=== PATIENT | female | born 1965 | race American Indian/Alaskan Native ===

== ENCOUNTER 2017-01-11 15:30 | Emergency (ER) | payer MEDICAID ==
[2017-01-11 15:33] VITALS: BMI 24.7
[2017-01-11 16:10] VITALS: BP 144/74; O2SAT 98
[2017-01-11] MEDS ORDERED: Oxycodone/Acetaminophen 5/325 mg Tab PO STA ×2 (16:31→18:08)
--- NOTE | 2017-01-11 16:43 | ED PDOC ---
Arrival/HPI - General Chief Complaint: Back Pain Time Seen by Provider: 01/11/17 16:30 Historian: Patient - History of Present Illness Narrative History of Present Illness (Text): 01/11/17 16:39 Patient with past medical history of fibromyalgia on chronic pain medication tylenol # 3 and tramadol at home Rx by her neurologist, reports yesterday that she was pushing her scooter up a ramp and lost control, states that the scooter started to back up causing her to fall landing on her left side, then the scooter fell on top of her, on her right side. Patient reports diffuse body pain left greater than right, states that most of her pain is located on her bilateral shoulders and left ankle. Otherwise: (-) head injury, (-) loss of consciousness, (-) nausea, (-) vomiting, (-) severe headache, (-) other injury, (-) subjective neurologic deficit, (-) anticoagulants. PMD Champagne Past Medical History - Provider Review Nursing Documentation Reviewed: Yes - Infectious Disease Hx of Infectious Diseases: None - Tetanus Immunization Tetanus Immunization: Unknown - Reproductive Menopause: No - Cardiac Hx Hypertension: Yes - Pulmonary Hx Respiratory Disorders: No - Neurological Hx Neurological Disorder: No - HEENT Hx HEENT Disorder: No - Renal Hx Renal Disorder: No - Endocrine/Metabolic Hx Endocrine Disorders: No - Hematological/Oncological Hx Blood Disorders: No - Integumentary Hx Dermatological Disorder: No - Musculoskeletal/Rheumatological Hx Musculoskeletal Disorders: No - Gastrointestinal Hx Gastrointestinal Disorders: No - Genitourinary/Gynecological Hx Genitourinary Disorders: No - Psychiatric Hx Anxiety: Yes Hx Substance Use: No - Surgical History Hx Section: Yes (x3) Other/Comment: left ovarectemy - Anesthesia Hx Anesthesia: Yes Hx Anesthesia Reactions: No Hx Malignant Hyperthermia: No - Suicidal Assessment Feels Threatened In Home Enviroment: No Family/Social History - Physician Review Nursing Documentation Reviewed: Yes Family/Social History: No Known Family HX Smoking Status: Never Smoked Hx Alcohol Use: No Hx Substance Use: No Hx Substance Use Treatment: No Allergies/Home Meds Allergies/Adverse Reactions: Allergies amoxicillin Allergy (Verified 01/11/17 16:12) SHORTNESS OF BREATH cephalexin monohydrate [From Keflex] Allergy (Verified 01/11/17 16:12) RASH Sulfa (Sulfonamide Antibiotics) Allergy (Verified 01/11/17 16:11) SHORTNESS OF BREATH KEFLEX Allergy (Uncoded 01/11/17 16:12) REDNESS Home Medications: Home Meds Medication Instructions Recorded Confirmed Chlordiazepoxide Hydrochlori 09/16/15 09/16/15 [Librium] Phenazopyridine Hydrochlorid2 09/16/15 09/16/15 [Phenazopyridine] hydrOXYzine Pamoate [Vistaril] 09/16/15 09/16/15 Review of Systems - Review of Systems Constitutional: Normal, Fatigue. absent: Weight Change, Fevers Respiratory: Normal. absent: SOB, Cough Cardiovascular: Normal. absent: Chest Pain, Palpitations Musculoskeletal: Normal, Arthralgias, Back Pain, Neck Pain. absent: Joint Swelling Skin: Normal. absent: Rash, Pruritis, Skin Lesions Neurological: Normal. absent: Headache, Dizziness, Focal Weakness Physical Exam - Physical Exam Narrative Physical Exam (Text): 01/11/17 16:42 GENERAL APPEARANCE: Patient is awake, alert, oriented x 3, in moderate painful distress. SKIN: Warm, dry; (-) cyanosis. HEAD: (-) swelling and tenderness, with no palpable bony defect. EYES: (-) conjunctival pallor, (-) scleral icterus, (-) nystagmus. ENMT: Mucous membranes moist. (-) Choudhary's sign. Nose: (-) tenderness, (-) rhinorrhea. No oral trauma. Pharynx clear. Airway patent: (-) stridor. Full ROM of mandible without pain. NECK: (-) tenderness, (-) stiffness, (-) lymphadenopathy. CHEST AND RESPIRATORY: (-) chest wall tenderness. Lungs: (-) rales, (-) rhonchi, (-) wheezes; breath sounds equal bilaterally. HEART AND CARDIOVASCULAR: (-) irregularity; (-) murmur, (-) gallop. ABDOMEN AND GI: Soft; (-) tenderness. BACK: (-) tenderness. EXTREMITIES: (-) deformity, (+) mild diffuse tenderness, greatest in b/l shoulders and L ankle, (+) mild edema to the L ankle, (-) limitation of motion NEURO AND PSYCH: GCS=15. Mental status as above. 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 EOMI. (-) facial asymmetry. Tongue and uvula midline. Strength 5/5 in all extremities. No gross sensory deficits. DTRs symmetric. Vital Signs Temp Pulse Resp BP Pulse Ox 01/11/17 18:56 98.0 F 100 H 16 98 01/11/17 15:59 97.8 F 106 H 18 144/74 98 Medical Decision Making ED Course and Treatment: 01/11/17 16:43 51 yo F with pmh of fibromyalgia on chronic pain medications, s/p fall while pushing her scooter, c/o diffuse body pain, greatest pain in b/l shoulder and L ankle. XRs ordered of b/l shoulder and L ankle. Given percocet 1 tab po. 01/11/17 18:09 XR bilateral shoulders: no fracture, no dislocation, as read by PA XR L ankle: no fracture, no dislocation, as read by PA Patient advised that official radiology read of XR is still pending and will call the patient if there is any discrepancy within 24 hours. X-ray results discussed with the patient agreed detail. Patient continues to complain of pain, given another dose of Percocet one tablet by mouth. Amrik wrap applied to the L ankle. Based on history, exam and diagnostic results plan will be for outpatient follow -up with PMD. Advised to continue taking her current pain medications at home.Patient states she fully agrees with and understands discharge instructions. States that she agrees with the plan and disposition. Verbalized and repeated discharge instructions and plan. I have given the patient opportunity to ask any additional questions. Follow up with primary care physician in 1-2 days without fail. Return to the emergency room at any time for any new or worsening symptoms. - RAD Interpretation Radiology Orders: 01/11/17 16:30 SHOULDER MIN 2 VIEWS BI [RAD] Stat 01/11/17 16:31 ANKLE LEFT 3 VIEWS ROUTINE [RAD] Stat - Medication Orders Current Medication Orders: Discontinued Medications Home Med (*Refrigerator Open) Confirm Administered Dose 1 unit XX .STK-MED ONE Stop: 01/11/17 17:12 Oxycodone/Acetaminophen (Percocet 5/325 Mg Tab) 1 tab PO STAT STA Stop: 01/11/17 16:32 Last Admin: 01/11/17 16:41 Dose: 1 TAB Oxycodone/Acetaminophen (Percocet 5/325 Mg Tab) 1 tab PO STAT STA Stop: 01/11/17 18:09 Last Admin: 01/11/17 18:26 Dose: 1 TAB - PA / STUDY LEAD / Resident Statement / has reviewed & agrees with the documentation as recorded. Disposition/Present on Arrival - Present on Arrival Any Indicators Present on Arrival: No History of DVT/PE: No History of Uncontrolled Diabetes: No Urinary Catheter: No History of Decub. Ulcer: No History Surgical Site Infection Following: None - Disposition Have Diagnosis and Disposition been Completed?: Yes Diagnosis: Shoulder pain, bilateral, Ankle pain, Myalgia Disposition: HOME/ ROUTINE Disposition Time: 18:10 Patient Plan: Discharge Patient Problems: Current Active Problems Problem Status Diagnosed Ankle pain Acute Myalgia Acute Shoulder pain, bilateral Acute Condition: GOOD Discharge Instructions (ExitCare): Arthralgia (ED), Musculoskeletal Pain (ED) Print Language: UZBEK Additional Instructions: Thank you for letting us take care of you today. You were treated for bilateral shoulder pain, ankle pain, body aches status post fall. The emergency medical care you received today was directed at your acute symptoms. Return to the Emergency Department if your symptoms worsen, do not improve, or if you have any other problems. Please contact your doctor in 2 days for re-evaluation and follow up. Bring any paperwork you were given at discharge with you along with any medications you are taking to your follow up visit. Our treatment cannot replace ongoing medical care by a primary care provider (PCP) outside of the emergency department. Thank you for allowing the [email or web address] team to be part of your care today. Referrals: Brenda Champagne DO [Primary Care Provider] - Follow up with primary
[2017-01-11 18:57] VITALS: PULSE 100; RESP 16; TEMP 98
--- NOTE | 2017-01-12 08:25 | RAD ---
PROCEDURE: Left Ankle Radiographs. HISTORY: pain COMPARISON: None FINDINGS: BONES: Normal. No fracture. JOINTS: Normal. No osteoarthritis. Ankle mortise maintained. Talar dome intact SOFT TISSUES: Normal. OTHER FINDINGS: None. IMPRESSION: Normal left ankle radiographs.
--- NOTE | 2017-01-12 08:30 | RAD ---
PROCEDURE: Radiographs of both shoulders HISTORY: pain COMPARISON: No prior. FINDINGS: BONES: Right shoulder: Normal. No fracture. Left shoulder: Normal. No fracture. JOINTS: Right shoulder: Normal. No significant osteoarthritic changes. Left shoulder: Normal. No significant osteoarthritic changes. SOFT TISSUES: Right shoulder: Grossly unremarkable. Right shoulder: Grossly unremarkable. OTHER FINDINGS: None. IMPRESSION: Normal radiographs of the shoulders.
== END 2017-01-11 19:17 | disposition home or self-care (01) ==
LOC: ED 15:30
DX: M79.1 Myalgia (principal); M25.511 Pain in right shoulder; M25.512 Pain in left shoulder; M25.572 Pain in left ankle and joints of left foot

== ENCOUNTER 2017-10-28 16:34 | Emergency (ER) | payer MEDICAID ==
[2017-10-28 16:35] VITALS: BMI 24.7
[2017-10-28 16:54] VITALS: TEMP 98.8
--- NOTE | 2017-10-28 17:09 | ED PDOC ---
"Arrival/HPI - General Chief Complaint: ENT Problem Time Seen by Provider: 10/28/17 17:02 Historian: Patient - History of Present Illness Narrative History of Present Illness (Text): 10/28/17 17:03 51 y/o female, pmh including UTI, allergic to penicillin, post menopausal, c/o rt. sided facial swelling and pain x 3 days. Pt. stated that she had a tiny lesion on the rt. lower chin about 3 days ago, been picking and rubbing it, now she had rt. sided facial swelling with pain, no numbness or tingling, no night sweat, no dizziness, no rash, no other medical or psychological complaints. Past Medical History - Provider Review Nursing Documentation Reviewed: Yes - Infectious Disease Hx of Infectious Diseases: None - Tetanus Immunization Tetanus Immunization: Unknown - Reproductive Menopause: Yes - Cardiac Hx Hypertension: Yes - Pulmonary Hx Respiratory Disorders: No - Neurological Hx Neurological Disorder: No - HEENT Hx HEENT Disorder: No - Renal Hx Renal Disorder: No - Endocrine/Metabolic Hx Endocrine Disorders: No - Hematological/Oncological Hx Blood Disorders: No - Integumentary Hx Dermatological Disorder: No - Musculoskeletal/Rheumatological Hx Musculoskeletal Disorders: No - Gastrointestinal Hx Gastrointestinal Disorders: No - Genitourinary/Gynecological Hx Genitourinary Disorders: No - Psychiatric Hx Anxiety: Yes Hx Substance Use: No - Surgical History Hx Section: Yes (x3) Other/Comment: left ovarectemy - Anesthesia Hx Anesthesia: Yes Hx Anesthesia Reactions: No Hx Malignant Hyperthermia: No - Suicidal Assessment Feels Threatened In Home Enviroment: No Family/Social History - Physician Review Nursing Documentation Reviewed: Yes Family/Social History: Unknown Family HX Smoking Status: Never Smoked Hx Alcohol Use: No Hx Substance Use: No Hx Substance Use Treatment: No Allergies/Home Meds Allergies/Adverse Reactions: Allergies amoxicillin Allergy (Verified 01/11/17 16:12) SHORTNESS OF BREATH cephalexin monohydrate [From Keflex] Allergy (Verified 10/28/17 16:51) RASH Sulfa (Sulfonamide Antibiotics) Allergy (Verified 10/28/17 16:51) SHORTNESS OF BREATH KEFLEX Allergy (Uncoded 01/11/17 16:12) REDNESS Review of Systems - Review of Systems Constitutional: absent: Fatigue, Fevers Eyes: absent: Vision Changes ENT: absent: Hearing Changes Respiratory: absent: SOB, Cough Cardiovascular: absent: Chest Pain Gastrointestinal: absent: Abdominal Pain, Diarrhea, Nausea, Vomiting Skin: Rash, Skin Lesions. absent: Pruritis, Laceration, Abscess, Ulcer Neurological: absent: Headache, Dizziness Psychiatric: absent: Anxiety, Depression Physical Exam Vital Signs Reviewed: Yes Vital Signs Temp Pulse Resp BP Pulse Ox 10/29/17 00:10 94 H 18 121/78 95 10/28/17 22:03 99 H 18 115/75 94 L 10/28/17 20:52 99 H 18 123/86 95 10/28/17 16:53 98.8 F 122 H 20 116/76 95 Temperature: Afebrile Blood Pressure: Normal Pulse: Tachycardic Respiratory Rate: Normal Appearance: Positive for: Well-Appearing, Non-Toxic Pain Distress: Moderate Mental Status: Positive for: Alert and Oriented X 3 - Systems Exam Head: Present: Atraumatic, Normocephalic Pupils: Present: PERRL Extroacular Muscles: Present: EOMI Conjunctiva: Present: Normal Ears: Present: NORMAL TM, Normal Canal. No: Erythema Mouth: Present: Moist Mucous Membranes Pharnyx: No: ERYTHEMA, EXUDATE, TONSILS ENLARGED, Uvular Deviation, Muffled/ Hoarse Voice, Strider, Soft Palate/Uvular Edema Nose (External): Present: Atraumatic. No: Abrasion, Contusion, Laceration Nose (Internal): Present: Normal Inspection, No Active Bleeding. No: Rhinorrhea , Septal Hematoma, Epistaxis Neck: Present: Normal Range of Motion, Trachea Midline. No: Meningeal Signs, MIDLINE TENDERNESS, Paraspinal Tenderness, Lymphadenopathy Respiratory/Chest: Present: Clear to Auscultation, Good Air Exchange. No: Respiratory Distress, Accessory Muscle Use, Wheezes, Decreased Breath Sounds, Rales, Retracting, Rhonchi, Tachypneic, Tender to Palpation Cardiovascular: Present: Regular Rate and Rhythm, Normal S1, S2. No: Murmurs Abdomen: Present: Normal Bowel Sounds. No: Tenderness, Distention, Peritoneal Signs, Rebound, Guarding Back: Present: Normal Inspection Upper Extremity: Present: Normal Inspection. No: Cyanosis, Edema Lower Extremity: Present: Normal Inspection. No: Edema Neurological: Present: GCS=15, Speech Normal, Motor Func Grossly Intact, Gait Normal, Memory Normal Skin: Present: Warm, Dry, Rashes (Rt. sided lower lateral chin region with papule approx. 1cm diameter with erythematous, associated with rt. sided facial swelling, no periorbital swelling, no painful movement of the eye. ), Normal Color Psychiatric: Present: Alert, Oriented x 3, Normal Insight, Normal Concentration Medical Decision Making ED Course and Treatment: 10/28/17 17:10 -Labs -CT facial -IV toradol/benadryl/fluid -observe and reassess 10/28/17 21:51 -Labs are non-significant -CT show Soft tissue swelling in the right chin anterior to the mandible, no associated dental disease identified; submandibular and submental adenopathy and shotty cervical adenopathy -IV morphine for her pain as she request it for tonight, I checked the [facility] and unable to prescribe controlled substance pain med for her due to the number of prescription. -IV clindamycin/morphine/zofran/decadron ordered for her -I will treat her lesion with herpes labialis and facial cellulitis. 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 - Lab Interpretations Lab Results: 10/28/17 17:20 10/28/17 17:20 Lab Results 10/28/17 17:20: WBC 6.4 D, RBC 4.13, Hgb 12.1, Hct 36.9, MCV 89.3, MCH 29.3, MCHC 32.8, RDW 13.4, Plt Count 251, MPV 8.5, Gran % 61.4, Lymph % (Auto) 24.0, [place] % (Auto) 10.0 H, Eos % (Auto) 4.4, Baso % (Auto) 0.2, Gran # 3.95, Lymph # 1.5, [place] # 0.6, Eos # 0.3, Baso # 0.01 10/28/17 17:20: Sodium 139, Potassium 3.7, Chloride 101, Carbon Dioxide 30, Anion Gap 12, BUN 10, Creatinine 0.7, Est GFR ( Amer) > 60, Est GFR (Non- Af Amer) > 60, Random Glucose 121 H, Calcium 9.7, Total Bilirubin 0.4, AST 39 H , ALT 44, Alkaline Phosphatase 90, Total Protein 8.2, Albumin 4.4, Globulin 3.7 , Albumin/Globulin Ratio 1.2 - RAD Interpretation Radiology Orders: 10/28/17 17:10 MAXILLOFACIAL W/CONTRAST [CT] Stat FINDINGS: Bones/joints: There are degenerative changes in the spine. Soft tissues: There is soft tissue swelling and edema in the chin on the right. No focal abnormality is seen in the underlying right mandible. Vasculature: Vascular structures are unremarkable. Lymph nodes: There are mildly enlarged submental and submandibular lymph nodes bilaterally. There are shotty cervical nodes. Orbits: Orbital contents are unremarkable. Salivary glands: Parotid and submandibular glands are unremarkable. Sinuses: There is mucoperiosteal thickening in ethmoid air cells. There is a retention cyst/polyp left maxillary antrum. There are no air-fluid levels in the sinuses. Ears and mastoids: Middle ears and mastoids are unremarkable. Dental: Streak artifact from dental fillings. There are no dental erosions. BETORIK MURPHYN | Final Radiology Report CONFIDENTIALITY STATEMENT This report is intended only for use by the referring physician, and only in accordance with law. If you received this in error, call [phone]. Page 2 of 2 Brain: No focal abnormalities are seen in visualized portion of the brain. IMPRESSION: Soft tissue swelling in the right chin anterior to the mandible, no associated dental disease identified; submandibular and submental adenopathy and shotty cervical adenopathy Additional nonemergent findings as described above. Thank you for allowing us to participate in the care of your patient. 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 - Medication Orders Current Medication Orders: Discontinued Medications Diphenhydramine HCl (Benadryl) 50 mg IVP STAT STA Stop: 10/28/17 17:13 Last Admin: 10/28/17 17:30 Dose: 50 mg IVP Administration Document 10/28/17 17:30 GMD (Rec: 10/28/17 17:30 [facility]MD [facility] [id number]) Charges for Administration # of IVP Administrations 1 Sodium Chloride (Sodium Chloride 0.9%) 1,000 mls @ 100 mls/hr IV .Q10H ALFRED Last Admin: 10/28/17 17:30 Dose: 100 mls/hr eMAR Start Stop Document 10/28/17 17:30 GMD (Rec: 10/28/17 17:30 [id number][place] Intravenous Solution Start Date 10/28/17 Start Time 17:30 Clindamycin Phosphate 900 mg/ (Sodium Chloride) 106 mls @ 106 mls/hr IVPB STAT STA PRN Reason: Protocol Stop: 10/28/17 22:44 Last Admin: 10/28/17 22:56 Dose: 106 mls/hr eMAR Start Stop Document 10/28/17 22:56 GMD (Rec: 10/28/17 22:56 [id number]) Intravenous Solution Start Date 10/28/17 Start Time 22:56 End Date 10/28/17 End time 23:56 Total Infusion Time 60 Dexamethasone 8 mg/ Sodium (Chloride) 52 mls @ 150 mls/hr IV ONCE ONE Stop: 10/28/17 22:11 Last Admin: 10/28/17 22:20 Dose: 150 mls/hr eMAR Start Stop Document 10/28/17 22:20 GMD (Rec: 10/28/17 22:20 [id number]) Intravenous Solution Start Date 10/28/17 Start Time 22:20 End Date 10/28/17 End time 22:40 Total Infusion Time 20 Ketorolac Tromethamine (Toradol) 30 mg IVP STAT STA Stop: 10/28/17 17:11 Last Admin: 10/28/17 17:30 Dose: 30 mg MAR Pain Assessment Document 10/28/17 17:30 GMD (Rec: 10/28/17 17:30 [facility] [id number]) Pain Reassessment Is this a pain reassessment? No Sleep Is patient sleeping during reassessment? No Presence of Pain Presence of Pain Yes Pain Scale Used Pain Scale Used Numeric Location Pain Location Body Site Face IVP Administration Document 10/28/17 17:30 GMD (Rec: 10/28/17 17:30 [facility] [id number]) Charges for Administration # of IVP Administrations 1 Morphine Sulfate (Morphine) 4 mg IVP STAT STA Stop: 10/28/17 21:46 Last Admin: 10/28/17 21:59 Dose: 4 mg MAR Pain Assessment Document 10/28/17 21:59 GMD (Rec: 10/28/17 21:59 [facility] [id number]) Pain Reassessment Is this a pain reassessment? No Sleep Is patient sleeping during reassessment? 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 Disposition/Present on Arrival - Present on Arrival Any Indicators Present on Arrival: No History of DVT/PE: No History of Uncontrolled Diabetes: No Urinary Catheter: No History of Decub. 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 Prescriptions: Cetirizine HCl [Zyrtec Allergy] 10 mg PO DAILY #10 sgl Clindamycin [Cleocin] 300 mg PO QID #40 cap Naproxen 500 mg PO BID PRN #20 tab PRN Reason: Other Valacyclovir HCl [Valtrex] 2 tab PO BID #4 tablet Referrals: Brenda Champagne DO [Primary Care Provider] - Follow up with primary Maci Ruiz MD [Staff Provider] - Follow up with primary Lazaro Bowles MD [Staff Provider] - Follow up with primary Forms: [employer] (Hungarian), WORK NOTE"
[2017-10-28] MEDS ORDERED: DiphenhydrAMINE 50 mg/ml Inj IVP STA (17:12)
[2017-10-28] MEDS ORDERED: Sodium Chloride 0.9% 1,000 ML IV SCH (17:15)
[2017-10-28] MEDS ORDERED: Iohexol 350 MG/100 ML VIAL ONE (17:39)
[2017-10-28 17:41] LABS: BASO # 0.01 K/mm3 (0.0-2.0); BASO % 0.2 % (0.0-3.0); EOS # 0.3 (0.0-0.7); EOS % 4.4 % (1.5-5.0); GRAN # 3.95 (1.4-6.5); GRAN % 61.4 % (50.0-68.0); HEMOGLOBIN 12.1 g/dL (12.0-16.0); LYMPH # 1.5 (1.2-3.4); MEAN CELL VOLUME 89.3 fl (80.0-105.0); MEAN CORPUSCULAR HEMOGLOBIN 29.3 pg (25.0-35.0); MEAN CORPUSCULAR HGB CONC 32.8 g/dl (31.0-37.0); MEAN PLATELET VOLUME 8.5 fl (7.0-11.0); MONO # 0.6 (0.1-0.6); RBC 4.13 10^6/uL (3.5-6.1); RED CELL DISTRIBUTION WIDTH 13.4 % (11.5-14.5); WHITE BLOOD COUNT 6.4 10^3/ul (4.5-11.0)
[2017-10-28 17:55] LABS: ALB/GLOB RATIO 1.2 (1.1-1.8); ALBUMIN 4.4 g/dL (3.0-4.8); ALT/SGPT 44 U/L (7-56); AST/SGOT 39 U/L (14-36); BLOOD UREA NITROGEN 10 mg/dL (7-21); CALCIUM 9.7 mg/dL (8.4-10.5); GFR AFRICAN-AMERICAN > 60; GFR NON-AFRICAN AMERICAN > 60
[2017-10-28 20:52] VITALS: RESP 18
--- NOTE | 2017-10-28 21:37 | CT ---
EXAM: CT Maxillofacial With Intravenous Contrast EXAM DATE/TIME: 10/28/2017 5:10 PM CLINICAL HISTORY: 51 years old, female; Pain; Face pain; Additional info: Rt. Sided facial swelling and pain x 2 days TECHNIQUE: Axial computed tomography images of the face with intravenous contrast. All CT scans at this facility use one or more dose reduction techniques, viz.: automated exposure control; ma/kV adjustment per patient size (including targeted exams where dose is matched to indication; i.e. head); or iterative reconstruction technique. Coronal and sagittal reformatted images were created and reviewed. CONTRAST: 100 mL of OMNI administered intravenously. COMPARISON: There are no prior studies for comparison. FINDINGS: Bones/joints: There are degenerative changes in the spine. Soft tissues: There is soft tissue swelling and edema in the chin on the right. No focal abnormality is seen in the underlying right mandible. Vasculature: Vascular structures are unremarkable. Lymph nodes: There are mildly enlarged submental and submandibular lymph nodes bilaterally. There are shotty cervical nodes. Orbits: Orbital contents are unremarkable. Salivary glands: Parotid and submandibular glands are unremarkable. Sinuses: There is mucoperiosteal thickening in ethmoid air cells. There is a retention cyst/polyp left maxillary antrum. There are no air-fluid levels in the sinuses. Ears and mastoids: Middle ears and mastoids are unremarkable. Dental: Streak artifact from dental fillings. There are no dental erosions. Brain: No focal abnormalities are seen in visualized portion of the brain. IMPRESSION: Soft tissue swelling in the right chin anterior to the mandible, no associated dental disease identified; submandibular and submental adenopathy and shotty cervical adenopathy Additional nonemergent findings as described above.
[2017-10-28] MEDS ORDERED: Morphine 4 mg/ml ISec IVP STA (21:45)
[2017-10-29 00:10] VITALS: BP 121/78; PULSE 94; O2SAT 95
== END 2017-10-29 00:34 | disposition home or self-care (01) ==
LOC: ED 16:34
DX: R22.0 Localized swelling, mass and lump, head (principal); L98.8 Other specified disorders of the skin and subcutaneous tissue; I10 Essential (primary) hypertension
CPT/HCPCS: 70488; 80053; 85025; 96365; 96367; 96375; 99284; J1100; J1200; J1885; J2270; J2405; J7040; Q9967

== ENCOUNTER 2018-05-10 02:59 | Emergency (ER) | payer MEDICAID ==
[2018-05-10 03:02] VITALS: BMI 34.2
[2018-05-10 03:25] VITALS: RESP 18
--- NOTE | 2018-05-10 03:33 | ED PDOC ---
Arrival/HPI - General Chief Complaint: Chest Pain Time Seen by Provider: 05/10/18 03:01 Historian: Patient, Family - History of Present Illness Narrative History of Present Illness (Text): 05/10/18 03:30 A 52 year old female, whose past medical history includes fribromyalgia, mitral valve Prolapse and hypertension, presents to the emergency department complaining of chest pain since earlier tonight. Patient reports reports chest pain occured after taking medicinal marijuana. Patient denies any previous heart pain and denies any fever, chills, shortness of breath, nausea, vomiting, back pain, neck pain, headache, dizziness, or any other complaints. PMD: Dr. Roth Time/Duration: 4-6 hours, Other (Earlier tonight) Symptom Onset: Gradual Symptom Course: Unchanged Quality: Pressure Context: Home Past Medical History - Provider Review Nursing Documentation Reviewed: Yes - Infectious Disease Hx of Infectious Diseases: None - Tetanus Immunization Tetanus Immunization: Unknown - Cardiac Hx Hypertension: Yes - Pulmonary Hx Respiratory Disorders: No - Neurological Hx Neurological Disorder: No - HEENT Hx HEENT Disorder: No - Renal Hx Renal Disorder: No - Endocrine/Metabolic Hx Endocrine Disorders: No - Hematological/Oncological Hx Blood Disorders: No - Integumentary Hx Dermatological Disorder: No - Musculoskeletal/Rheumatological Hx Musculoskeletal Disorders: No - Gastrointestinal Hx Gastrointestinal Disorders: No - Genitourinary/Gynecological Hx Genitourinary Disorders: No - Psychiatric Hx Anxiety: Yes Hx Substance Use: No - Surgical History Hx Section: Yes (x3) Other/Comment: left ovarectemy - Anesthesia Hx Anesthesia: Yes Hx Anesthesia Reactions: No Hx Malignant Hyperthermia: No - Suicidal Assessment Feels Threatened In Home Enviroment: No Family/Social History - Physician Review Nursing Documentation Reviewed: Yes Family/Social History: Unknown Family HX Smoking Status: Never Smoked Hx Alcohol Use: No Hx Substance Use: No Hx Substance Use Treatment: No Allergies/Home Meds Allergies/Adverse Reactions: Allergies amoxicillin Allergy (Verified 05/10/18 03:02) SHORTNESS OF BREATH cephalexin monohydrate [From Keflex] Allergy (Verified 05/10/18 03:02) RASH Sulfa (Sulfonamide Antibiotics) Allergy (Verified 05/10/18 03:02) SHORTNESS OF BREATH KEFLEX Allergy (Uncoded 05/10/18 03:02) REDNESS Home Medications: Home Meds Medication Instructions Recorded Confirmed Acetaminophen with Codeine 1 tab PO QID PRN 05/10/18 05/10/18 [Tylenol with Codeine #4 Tablet] Furosemide [Lasix] 20 mg PO DAILY 05/10/18 05/10/18 Gabapentin [Neurontin] 600 mg PO TID PRN 05/10/18 05/10/18 Metoprolol Succinate [Toprol Xl] 25 mg PO DAILY 05/10/18 05/10/18 Sertraline HCl [Sertraline HCl] 25 mg PO DAILY 05/10/18 05/10/18 Tramadol HCl [Ultram] 50 mg PO Q6H PRN 05/10/18 05/10/18 Zolpidem [Ambien] 10 mg PO HS 05/10/18 05/10/18 chlordiazePOXIDE [Librium] 25 mg PO BID 05/10/18 05/10/18 hydrOXYzine Pamoate [Vistaril] 50 mg PO Q6H PRN 05/10/18 05/10/18 Review of Systems - Physician Review All systems were reviewed & negative as marked: Yes - Review of Systems Constitutional: Normal. absent: Fevers, Night Sweats Eyes: Normal Respiratory: absent: SOB Cardiovascular: Chest Pain (center chest pain) Gastrointestinal: absent: Nausea, Vomiting Musculoskeletal: absent: Back Pain, Neck Pain Neurological: absent: Headache, Dizziness Physical Exam Vital Signs Reviewed: Yes Vital Signs Temp Pulse Pulse Resp BP Pulse Ox 05/10/18 05:15 98.1 F 87 18 107/73 97 05/10/18 03:49 87 05/10/18 03:10 97.6 F 99 H 18 139/74 100 Temperature: Afebrile Blood Pressure: Normal Pulse: Tachycardic Respiratory Rate: Normal Appearance: Positive for: Well-Appearing, Non-Toxic, Comfortable Pain Distress: None Mental Status: Positive for: Alert and Oriented X 3 - Systems Exam Head: Present: Atraumatic, Normocephalic Pupils: Present: PERRL Extroacular Muscles: Present: EOMI Conjunctiva: Present: Normal Mouth: Present: Moist Mucous Membranes Neck: Present: Normal Range of Motion Respiratory/Chest: Present: Clear to Auscultation, Good Air Exchange. No: Respiratory Distress, Accessory Muscle Use Cardiovascular: Present: Regular Rate and Rhythm, Normal S1, S2. No: Murmurs Abdomen: No: Tenderness, Distention, Peritoneal Signs Back: Present: Normal Inspection Upper Extremity: Present: Normal Inspection. No: Cyanosis, Edema Lower Extremity: Present: Normal Inspection. No: Edema Neurological: Present: GCS=15, CN II-XII Intact, Speech Normal Skin: Present: Warm, Dry, Normal Color. No: Rashes Psychiatric: Present: Alert, Oriented x 3, Normal Insight, Normal Concentration , Anxious Medical Decision Making ED Course and Treatment: 05/10/18 03:35 Impression: 52 year old female presents to the emergency department complaining of chest pain. ro acs Plan: -- EKG -- Labs -- CBC -- DDimer -- Partial Thromboplastin -- Prothrombin -- Chest X-ray -- HCG. Qualitative Urine Stat -- Urinalysis -- Reassess and disposition Prior Visits: Notes and results from previous visits were reviewed. Progress Notes: 05/10/18 05:04 Chest X-ray reviewed, no acute findings. Interpreted by me. 05/10/18 05:56 Leaving Against Medical Advice (AMA): The patient is choosing to leave against medical advice. I have personally explained to the patient that choosing to do so may result in permanent bodily harm or . I have discussed at great length that without further evaluation and monitoring there may be unforeseen circumstances and/or deterioration causing permanent bodily harm or as a result of their choice. The patient is alert, oriented, and shows the mental capacity to make clear decisions regarding the patients health care at this time. The patient continues to wish to leave against medical advice. In light of the patients decision to leave against medical advice, follow-up has been arranged and the patient is aware of the importance to following up as instructed. The patient has been advised that they should return to the emergency room immediately if they change their mind at any time, or if their condition begins to change or worsen in any way. 05/10/18 06:29 trop neg x 1, elevated lfts. no abd ttp. as pt has had pain < 6 hours from ed presentation, requested serial trop and obs. pt norma littlejohn cp free. notfiied of lab results. advise outpt fu. - Lab Interpretations Lab Results: 05/10/18 03:45 05/10/18 03:45 Lab Results 05/10/18 05:05: Urine Opiates Screen Positive H, Urine Methadone Screen Negative , Ur Barbiturates Screen Negative, Ur Phencyclidine Scrn Negative, Ur Amphetamines Screen Negative, U Benzodiazepines Scrn Positive H, U Oth Cocaine Metabols Negative, U Cannabinoids Screen Positive H 05/10/18 03:45: Urine HCG, Qual Negative 05/10/18 03:45: Sodium 143, Potassium 4.3, Chloride 103, Carbon Dioxide 26, Anion Gap 18, BUN 7, Creatinine 0.7, Est GFR ( Amer) > 60, Est GFR (Non- Af Amer) > 60, Random Glucose 116 H, Calcium 9.5, Magnesium 2.0, Total Bilirubin 0.6, AST 42 H, ALT 60 H, Alkaline Phosphatase 131 H D, Lactate Dehydrogenase 967 H, Total Creatine Kinase 195, Troponin I < 0.01, Total Protein 9.1 H, Albumin 5.0 H, Globulin 4.1, Albumin/Globulin Ratio 1.2 05/10/18 03:45: Urine Color Yellow, Urine Appearance Clear, Urine pH 6.0, Ur Specific [place] >= 1.030, Urine Protein Negative, Urine Glucose (UA) Negative, Urine Ketones Negative, Urine Blood Negative, Urine Nitrate Negative, Urine Bilirubin Negative, Urine Urobilinogen 0.2, Ur Leukocyte Esterase Trace H, Urine RBC 0 - 2, Urine WBC 2 - 5, Ur Epithelial Cells 4 - 5, Urine Bacteria Mod 05/10/18 03:45: PT 11.1, INR 0.97, APTT 30.0, D-Dimer, Quantitative < 200 05/10/18 03:45: WBC 4.2 L D, RBC 4.75, Hgb 13.5, Hct 40.6, MCV 85.5 D, MCH 28.4 , MCHC 33.3, RDW 13.2, Plt Count 254, MPV 8.8, Gran % 41.0 L, Lymph % (Auto) 46.0 H, [place] % (Auto) 7.8 H, Eos % (Auto) 5.0, Baso % (Auto) 0.2, Gran # 1.74, Lymph # (Auto) 2.0, [place] # (Auto) 0.3, Eos # (Auto) 0.2, Baso # (Auto) 0.01 - RAD Interpretation Radiology Orders: 05/10/18 03:29 CHEST PORTABLE [RAD] Stat - Scribe Statement The provider has reviewed the documentation as recorded by the Devin Orellana All medical record entries made by the Scribe were at my direction and personally dictated by me. I have reviewed the chart and agree that the record accurately reflects my personal performance of the history, physical exam, medical decision making, and the department course for this patient. I have also personally directed, reviewed, and agree with the discharge instructions and disposition. Disposition/Present on Arrival - Present on Arrival Any Indicators Present on Arrival: No History of DVT/PE: No History of Uncontrolled Diabetes: No Urinary Catheter: No History of Decub. Ulcer: No History Surgical Site Infection Following: None - Disposition Have Diagnosis and Disposition been Completed?: Yes Diagnosis: Chest pain, Elevated LFTs, Left against medical advice Disposition: AGAINST MEDICAL ADVICE Disposition Time: 06:30 Patient Problems: Current Active Problems Problem Status Onset Chest pain Acute Elevated LFTs Acute Condition: UNKNOWN Discharge Instructions (ExitCare): Leaving Against Medical Advice, Chest Pain ( ED) Additional Instructions: you are declining repeat testing . you are able to return to any er with worsening symptoms or concerns. please discuss your lab tests with your doctor. you may need further testing. Referrals: Aleksey Garcia MD [Staff Provider] - Follow up with primary Elver Velasco MD [Staff Provider] - Follow up with primary Forms: [employer] (Malay)
[2018-05-10 03:51] VITALS: PULSE 87
[2018-05-10 04:46] LABS: ALB/GLOB RATIO 1.2 (1.1-1.8); CALCIUM 9.5 mg/dL (8.4-10.5); GFR AFRICAN-AMERICAN > 60; GFR NON-AFRICAN AMERICAN > 60
[2018-05-10 04:49] LABS: BASO # 0.01 K/mm3 (0.0-2.0); BASO % 0.2 % (0.0-3.0); EOS # 0.2 (0.0-0.7); GRAN # 1.74 (1.4-6.5); HEMOGLOBIN 13.5 g/dL (12.0-16.0); INR 0.97; MEAN CELL VOLUME 85.5 fl (80.0-105.0); MEAN CORPUSCULAR HEMOGLOBIN 28.4 pg (25.0-35.0); MEAN CORPUSCULAR HGB CONC 33.3 g/dl (31.0-37.0); MEAN PLATELET VOLUME 8.8 fl (7.0-11.0); MONO # 0.3 (0.1-0.6); MONO % 7.8 % (1.0-6.0); PROTHROMBIN TIME 11.1 SECONDS (9.4-12.5); RBC 4.75 10^6/uL (3.5-6.1); RED CELL DISTRIBUTION WIDTH 13.2 % (11.5-14.5); WHITE BLOOD COUNT 4.2 10^3/ul (4.5-11.0)
[2018-05-10 04:51] LABS: ALT/SGPT 60 U/L (7-56); AST/SGOT 42 U/L (14-36); BLOOD UREA NITROGEN 7 mg/dL (7-21)
[2018-05-10 04:57] LABS: URINE BILIRUBIN NEGATIVE (NEGATIVE); URINE BLOOD NEGATIVE (NEGATIVE); URINE GLUCOSE (UA) NEGATIVE (NEGATIVE); URINE LEUKOCYTE ESTERASE TRACE Leu/uL (NEGATIVE); URINE PROTEIN NEGATIVE mg/dL (<30 mg/dL); URINE UROBILINOGEN 0.2 E.U./dL (<1 E.U./dL)
[2018-05-10 04:58] LABS: TROPONIN I < 0.01 ng/mL
[2018-05-10 05:00] LABS: URINE APPEARANCE CLEAR (CLEAR); URINE COLOR YELLOW (YELLOW)
[2018-05-10 05:24] LABS: URINE BACTERIA MOD (NEG); URINE RBC 0 - 2 /hpf (0-2)
[2018-05-10 05:47] LABS: D DIMER < 200 ng/mL
[2018-05-10 06:05] LABS: PHENCYCLIDINE, UR NEGATIVE (NEGATIVE)
[2018-05-10 06:07] LABS: BARBITURATES, UR NEGATIVE (NEGATIVE); BENZODIAZEPINES, UR POSITIVE (NEGATIVE); OPIATES, UR POSITIVE (NEGATIVE)
[2018-05-10 06:23] VITALS: BP 107/73; TEMP 98.1; O2SAT 97
--- NOTE | 2018-05-10 08:09 | RAD ---
Date of service: 05/10/2018 HISTORY: cp COMPARISON: No prior. FINDINGS: LUNGS: No active pulmonary disease. PLEURA: No significant pleural effusion identified, no pneumothorax apparent. CARDIOVASCULAR: Normal. OSSEOUS STRUCTURES: No significant abnormalities. VISUALIZED UPPER ABDOMEN: Normal. OTHER FINDINGS: None. IMPRESSION: No active disease.
--- NOTE | 2018-05-10 09:06 | CARD ---
APPROVED REPORT Date of service: 05/10/2018 EKG Measurement Heart [id number] <Conclusion> Normal sinus rhythm Normal ECG
== END 2018-05-10 06:36 | disposition left against medical advice (07) ==
LOC: ED 02:59
DX: R07.9 Chest pain, unspecified (principal); R79.89 Other specified abnormal findings of blood chemistry; I10 Essential (primary) hypertension; M79.7 Fibromyalgia

== ENCOUNTER 2018-07-21 15:49 | Emergency (ER) | payer MEDICAID ==
[2018-07-21 16:13] VITALS: BMI 36.6
--- NOTE | 2018-07-21 16:29 | ED PDOC ---
Arrival/HPI - General Chief Complaint: Upper Extremity Problem/Injury Time Seen by Provider: 07/21/18 16:03 Historian: Patient - History of Present Illness Narrative History of Present Illness (Text): 07/22/18 02:37 52 y/o female with PMH of fibromyalgia and carpal tunnel presents to the ED c/o worsening right arm pain x 2 weeks. Pain is worse with movement. She takes Tramadol and Tylenol Codeine #4 for her fibromyalgia, followed by her pain management doctor, Dr. Meier. Last dose of medication was this morning 8am. Associated symptoms of weakness, numbness, and tingling to right hand and digits. Denies headache, vision changes, chest pain, SOB, facial droop, difficulty walking, changes in speech, rash. Past Medical History - Provider Review Nursing Documentation Reviewed: Yes - Infectious Disease Hx of Infectious Diseases: None - Tetanus Immunization Tetanus Immunization: Unknown - Cardiac Hx Cardiac Disorders: Yes Hx Hypertension: Yes - Pulmonary Hx Respiratory Disorders: No - Neurological Hx Neurological Disorder: No - HEENT Hx HEENT Disorder: No - Renal Hx Renal Disorder: No - Endocrine/Metabolic Hx Endocrine Disorders: No - Hematological/Oncological Hx Blood Disorders: No - Integumentary Hx Dermatological Disorder: No - Musculoskeletal/Rheumatological Hx Musculoskeletal Disorders: No - Gastrointestinal Hx Gastrointestinal Disorders: No - Genitourinary/Gynecological Hx Genitourinary Disorders: No - Psychiatric Hx Psychophysiologic Disorder: Yes Hx Anxiety: Yes Hx Substance Use: No - Surgical History Hx Section: Yes (x3) Other/Comment: left ovarectemy - Anesthesia Hx Anesthesia: Yes Hx Anesthesia Reactions: No Hx Malignant Hyperthermia: No - Suicidal Assessment Feels Threatened In Home Enviroment: No Family/Social History - Physician Review Nursing Documentation Reviewed: Yes Family/Social History: No Known Family HX Smoking Status: Never Smoked Hx Alcohol Use: No Hx Substance Use: No Hx Substance Use Treatment: No Allergies/Home Meds Allergies/Adverse Reactions: Allergies amoxicillin Allergy (Verified 07/21/18 16:18) SHORTNESS OF BREATH cephalexin monohydrate [From Keflex] Allergy (Verified 07/21/18 16:18) RASH Sulfa (Sulfonamide Antibiotics) Allergy (Verified 07/21/18 16:18) SHORTNESS OF BREATH KEFLEX Allergy (Uncoded 07/21/18 16:18) REDNESS Home Medications: Home Meds Medication Instructions Recorded Confirmed Acetaminophen with Codeine 1 tab PO QID PRN 05/10/18 07/21/18 [Tylenol with Codeine #4 Tablet] Furosemide [Lasix] 20 mg PO DAILY 05/10/18 07/21/18 Gabapentin [Neurontin] 600 mg PO TID PRN 05/10/18 07/21/18 Metoprolol Succinate [Toprol Xl] 25 mg PO DAILY 05/10/18 07/21/18 Sertraline HCl 25 mg PO DAILY 05/10/18 07/21/18 Tramadol HCl [Ultram] 50 mg PO Q6H PRN 05/10/18 07/21/18 Zolpidem [Ambien] 10 mg PO HS 05/10/18 07/21/18 chlordiazePOXIDE [Librium] 25 mg PO BID 05/10/18 07/21/18 hydrOXYzine Pamoate [Vistaril] 50 mg PO Q6H PRN 05/10/18 07/21/18 Review of Systems - Physician Review All systems were reviewed & negative as marked: Yes - Review of Systems Constitutional: Normal. absent: Fevers Eyes: Normal ENT: Normal Respiratory: Normal. absent: SOB, Cough Cardiovascular: Normal. absent: Chest Pain, Palpitations, Syncope Gastrointestinal: Normal. absent: Abdominal Pain, Nausea, Vomiting Genitourinary Female: Normal Musculoskeletal: Neck Pain (right cervical paraspinal), Myalgias (right arm). absent: Back Pain Skin: Normal. absent: Rash Neurological: Normal. absent: Headache, Dizziness Endocrine: Normal. absent: Diaphoresis Hemo/Lymphatic: Normal. absent: Adenopathy Physical Exam Vital Signs Reviewed: Yes Vital Signs Temp Pulse Resp BP Pulse Ox 07/21/18 16:13 98.2 F 99 H 18 112/70 95 Temperature: Afebrile Blood Pressure: Normal Pulse: Regular Respiratory Rate: Normal Appearance: Positive for: Well-Appearing, Non-Toxic, Comfortable Pain Distress: None Mental Status: Positive for: Alert and Oriented X 3 - Systems Exam Head: Present: Atraumatic, Normocephalic Pupils: Present: PERRL Extroacular Muscles: Present: EOMI Conjunctiva: Present: Normal Neck: Present: Normal Range of Motion, Paraspinal Tenderness (right-sided, mild ), Trachea Midline, Other (positive spurling test, right side). No: MIDLINE TENDERNESS, Lymphadenopathy Respiratory/Chest: Present: Clear to Auscultation, Good Air Exchange. No: Respiratory Distress, Accessory Muscle Use Cardiovascular: Present: Regular Rate and Rhythm, Normal S1, S2. No: Murmurs Abdomen: Present: Normal Bowel Sounds. No: Tenderness, Distention, Peritoneal Signs Back: Present: Normal Inspection, Paraspinal Tenderness (right sided over trapezius, mild), Other (right-sided muscle spasm over trapezius and cervical paraspinal muscles). No: Midline Tenderness Upper Extremity: Present: Normal Inspection, Neurovascularly Intact, Capillary Refill < 2s. No: Cyanosis, Edema, Normal ROM (decreased secondary to pain), Tenderness, Swelling, Erythema, Deformity Lower Extremity: Present: Normal Inspection, Normal ROM. No: Edema Neurological: Present: GCS=15, CN II-XII Intact, Speech Normal, Motor Func Grossly Intact, Normal Sensory Function, Normal Cerebellar Funct, Gait Normal Skin: Present: Warm, Dry, Normal Color. No: Rashes Lymphatic: No: Cervical Adenopathy Psychiatric: Present: Alert, Oriented x 3, Normal Insight, Normal Concentration Medical Decision Making ED Course and Treatment: 07/21/18 16:26 Pt has not had any of her medications, including Tylenol #4 and Tramadol since 8:30 this morning. Initial Plan: -Toradol 60mg IM -Flexeril 10mg PO -EKG EKG: rate 94; normal sinus rhythm; no T wave inversion, ST elevations. Similar to prior EKG. Pt reports decreased pain, comfortable with discharge home. Impression: Cervical radiculopathy Plan: --continue with prescribed pain medication --followup pain management within next 2 days --followup primary within next 2 days --followup neurology --return to ED if symptoms worsen - EKG Interpretation Interpreted by ED Physician: Yes Type: 12 lead EKG Comparison: Similar to previous EKG - Medication Orders Current Medication Orders: Cyclobenzaprine HCl (Flexeril) 10 mg PO STAT STA Stop: 07/21/18 16:26 Discontinued Medications Ketorolac Tromethamine (Toradol) 60 mg IM STAT STA Stop: 07/21/18 16:21 Disposition/Present on Arrival - Present on Arrival Any Indicators Present on Arrival: No History of DVT/PE: No History of Uncontrolled Diabetes: No Urinary Catheter: No History of Decub. Ulcer: No History Surgical Site Infection Following: None - Disposition Have Diagnosis and Disposition been Completed?: Yes Diagnosis: Muscle spasm Disposition: HOME/ ROUTINE Disposition Time: 18:00 Patient Plan: Discharge Condition: IMPROVED Discharge Instructions (ExitCare): Muscle Spasms (DC) Additional Instructions: Take home medications as prescribed Apply heat to affected area every 30 minutes Followup with pain management doctor within 2 days Return to ED if symptoms worsen Referrals: [facility] [place] - Follow up with primary Marie Duggan MD [Medical Doctor] - Follow up with primary Ronak Olvera MD [Staff Provider] - Follow up with primary Forms: [employer] (Burmese)
[2018-07-21 18:16] VITALS: BP 130/70; PULSE 97; RESP 19; TEMP 98.9; O2SAT 99
--- NOTE | 2018-07-21 22:17 | CARD ---
APPROVED REPORT Date of service: 07/21/2018 EKG Measurement Heart [id number] <Conclusion> Normal sinus rhythm Normal Electrocardiogram
== END 2018-07-21 18:16 | disposition home or self-care (01) ==
LOC: ED 15:49
DX: M62.838 Other muscle spasm (principal); I10 Essential (primary) hypertension
CPT/HCPCS: 93005; 96372; 99283; J1885

== ENCOUNTER 2019-03-07 22:07 | Emergency (ER) | payer MEDICAID ==
[2019-03-07 22:08] VITALS: BMI 36.6
[2019-03-07 22:57] VITALS: TEMP 98.2
--- NOTE | 2019-03-07 23:27 | ED PDOC ---
Arrival/HPI - General Chief Complaint: Back Pain Time Seen by Provider: 03/07/19 22:21 Historian: Patient - History of Present Illness Narrative History of Present Illness (Text): 03/07/19 23:32 53 year old female, with past medical history of fibromyalgia, presents to the emergency department currently on pain management for complaints of right shoulder pain radiating down the right upper arm. Patient reports no history of recent trauma to area. She states that pain is worsened with movement of the shoulder. Patient denies any fever, chills, chest pain, shortness of breath, or any other complaints. Symptom Onset: Gradual Symptom Course: Unchanged Activities at Onset: Light Context: Home Past Medical History - Provider Review Nursing Documentation Reviewed: Yes - Infectious Disease Hx of Infectious Diseases: None - Tetanus Immunization Tetanus Immunization: Unknown - Cardiac Hx Cardiac Disorders: Yes Hx Hypertension: Yes - Pulmonary Hx Respiratory Disorders: No - Neurological Hx Neurological Disorder: No - HEENT Hx HEENT Disorder: No - Renal Hx Renal Disorder: No - Endocrine/Metabolic Hx Endocrine Disorders: No - Hematological/Oncological Hx Blood Disorders: No - Integumentary Hx Dermatological Disorder: No - Musculoskeletal/Rheumatological Hx Musculoskeletal Disorders: Yes - Gastrointestinal Hx Gastrointestinal Disorders: No - Genitourinary/Gynecological Hx Genitourinary Disorders: No - Psychiatric Hx Psychophysiologic Disorder: Yes Hx Anxiety: Yes Hx Substance Use: No - Surgical History Hx Section: Yes (x3) Other/Comment: left ovarectemy - Anesthesia Hx Anesthesia: Yes Hx Anesthesia Reactions: No Hx Malignant Hyperthermia: No - Suicidal Assessment Feels Threatened In Home Enviroment: No Family/Social History - Physician Review Nursing Documentation Reviewed: Yes Family/Social History: Unknown Family HX Smoking Status: Never Smoked Hx Alcohol Use: No Hx Substance Use: No Hx Substance Use Treatment: No Allergies/Home Meds Allergies/Adverse Reactions: Allergies amoxicillin Allergy (Verified 03/07/19 22:36) SHORTNESS OF BREATH cephalexin monohydrate [From Keflex] Allergy (Verified 03/07/19 22:36) RASH Sulfa (Sulfonamide Antibiotics) Allergy (Verified 03/07/19 22:36) SHORTNESS OF BREATH KEFLEX Allergy (Uncoded 03/07/19 22:36) REDNESS Home Medications: Home Meds Medication Instructions Recorded Confirmed Acetaminophen with Codeine 1 tab PO QID PRN 05/10/18 07/21/18 [Tylenol with Codeine #4 Tablet] Furosemide [Lasix] 20 mg PO DAILY 05/10/18 07/21/18 Gabapentin [Neurontin] 600 mg PO TID PRN 05/10/18 07/21/18 Metoprolol Succinate [Toprol Xl] 25 mg PO DAILY 05/10/18 07/21/18 Sertraline HCl 25 mg PO DAILY 05/10/18 07/21/18 Tramadol HCl [Ultram] 50 mg PO Q6H PRN 05/10/18 07/21/18 Zolpidem [Ambien] 10 mg PO HS 05/10/18 07/21/18 chlordiazePOXIDE [Librium] 25 mg PO BID 05/10/18 07/21/18 hydrOXYzine Pamoate [Vistaril] 50 mg PO Q6H PRN 05/10/18 07/21/18 Review of Systems - Physician Review All systems were reviewed & negative as marked: Yes - Review of Systems Constitutional: absent: Fevers Respiratory: absent: SOB, Cough Cardiovascular: absent: Chest Pain Gastrointestinal: absent: Abdominal Pain, Nausea, Vomiting Musculoskeletal: Arthralgias (right shoulder pain radiating down right upper arm ). absent: Neck Pain Neurological: absent: Headache, Dizziness Physical Exam Vital Signs Reviewed: Yes Vital Signs Temp Pulse Resp BP Pulse Ox 03/07/19 22:55 98.2 F 100 H 18 135/86 98 Temperature: Afebrile Blood Pressure: Normal Pulse: Regular Respiratory Rate: Normal Appearance: Positive for: Well-Appearing, Non-Toxic, Comfortable Pain Distress: None Mental Status: Positive for: Alert and Oriented X 3 - Systems Exam Head: Present: Atraumatic, Normocephalic Pupils: Present: PERRL Extroacular Muscles: Present: EOMI Conjunctiva: Present: Normal Mouth: Present: Moist Mucous Membranes Neck: Present: Normal Range of Motion Respiratory/Chest: Present: Clear to Auscultation, Good Air Exchange. No: Respiratory Distress, Accessory Muscle Use Cardiovascular: Present: Regular Rate and Rhythm, Normal S1, S2. No: Murmurs Abdomen: No: Tenderness, Distention, Peritoneal Signs Back: Present: Normal Inspection Upper Extremity: Present: Tenderness (tenderness to palpation on right anterior lateral shoulder), Neurovascularly Intact, Other (pain on any attempt at right shoulder abduction). No: Cyanosis, Edema Lower Extremity: Present: Normal Inspection. No: Edema Neurological: Present: GCS=15, CN II-XII Intact, Speech Normal, Motor Func Grossly Intact, Normal Sensory Function Skin: Present: Warm, Dry, Normal Color. No: Rashes Psychiatric: Present: Alert, Oriented x 3, Normal Insight, Normal Concentration Medical Decision Making ED Course and Treatment: 03/07/19 23:27 Impression: 53 year old female presents to emergency department for right shoulder pain radiating down right upper arm. Plan: -- EKG -- Flexeril -- Toradol -- X-ray right shoulder -- Reassess and disposition Prior Visits: Patient last seen in ER on 07/21/18 for muscle spasm in right arm. Progress Notes: 03/07/19 23:27 EKG: Ordered, reviewed, and independently interpreted the EKG. Rate : 98 BPM Rhythm : NSR Interpretation : No acute changes 03/08/19 00:04 X-ray right shoulder Impression: No acute processes - RAD Interpretation Radiology Orders: 03/07/19 23:16 SHOULDER RIGHT [RAD] Stat - Medication Orders Current Medication Orders: Discontinued Medications Cyclobenzaprine HCl (Flexeril) 10 mg PO ONCE ONE Stop: 03/07/19 23:14 Ketorolac Tromethamine (Toradol) 60 mg IM ONCE ONE Stop: 03/07/19 23:14 - Scribe Statement The provider has reviewed the documentation as recorded by the Scribe Nils Verduzco All medical record entries made by the Scribe were at my direction and personally dictated by me. I have reviewed the chart and agree that the record accurately reflects my personal performance of the history, physical exam, medical decision making, and the department course for this patient. I have also personally directed, reviewed, and agree with the discharge instructions and disposition. Disposition/Present on Arrival - Present on Arrival Any Indicators Present on Arrival: No History of DVT/PE: No History of Uncontrolled Diabetes: No Urinary Catheter: No History of Decub. Ulcer: No History Surgical Site Infection Following: None - Disposition Have Diagnosis and Disposition been Completed?: Yes Diagnosis: Shoulder bursitis, Fibromyalgia Disposition: HOME/ ROUTINE Disposition Time: 00:03 Patient Plan: Discharge Patient Problems: Current Active Problems Problem Status Onset Fibromyalgia Acute Shoulder bursitis Acute Condition: GOOD Discharge Instructions (ExitCare): Shoulder Bursitis (DC), Fibromyalgia (DC) Additional Instructions: Continue your pain meds as was prescribed/follow up with your pain management physician this week Referrals: PCP,NO [Primary Care Provider] - Follow up with primary Forms: [employer] (E[place]ian)
[2019-03-08 00:08] VITALS: BP 127/80; PULSE 90; RESP 16; O2SAT 100
--- NOTE | 2019-03-08 09:43 | CARD ---
APPROVED REPORT Date of service: 03/07/2019 EKG Measurement Heart [id number] <Conclusion> Normal sinus rhythm Possible Left atrial enlargement Borderline ECG
--- NOTE | 2019-03-08 11:46 | RAD ---
Date of service: 03/07/2019 PROCEDURE: Radiographs of the Right Shoulder HISTORY: pain COMPARISON: No prior. TECHNIQUE: 3 views obtained. FINDINGS: BONES: Acute fracture. JOINTS: Glenohumeral and acromioclavicular joint degenerative changes. Subchondral cystic changes in the greater tuberosity. SOFT TISSUES: Normal. OTHER FINDINGS: None. IMPRESSION: No demonstrated fracture or dislocation. Degenerative changes..
== END 2019-03-08 00:07 | disposition home or self-care (01) ==
LOC: ED 22:07
DX: M79.7 Fibromyalgia (principal); M75.51 Bursitis of right shoulder; I10 Essential (primary) hypertension
CPT/HCPCS: 73030; 93005; 96372; 99283; J1885